=== PATIENT | male | born 1965 | race Caucasian/White ===

== ENCOUNTER → 2018-05-18 | Day surgery (SDC) | payer OTHER ==
[2018-05-17 12:30] VITALS: BMI 40.3
[~2018-05-18] MED LIST: ALPRAZolam 0.25 MG TAB PO PRN; ALPRAZolam 0.5 MG TAB PO PRN; ASPIRIN 325 MG TAB PO STA; ASPIRIN 81 MG PO SCH; ATORVASTATIN 80 MG TAB PO SCH; ATORVASTATIN 80 MG TAB PO STA; CLOPIDOGREL 75 MG TAB PO SCH; CYCLOBENZAPRINE 10 MG TAB PO SCH; DIAZEPAM 5 MG TAB PO SCH; FUROSEMIDE 20 MG TAB PO SCH; IOPAMIDOL-370 150ML BTL INJ ONE; IPRATROPIUM 0.5 MG/2.5 ML NEBU INHALATION SCH; IV FLUID CONTINUATION 950 ML IV ONE; LIDOCAINE 1% INJ 10MG/ML (20 ML MDV) ONE; LIDOCAINE 1% INJ 10MG/ML (20 ML MDV) SQ ONE; LOSARTAN 50 MG TAB PO SCH; METOPROLOL TARTRATE 25 MG TAB PO SCH; MIDAZOLAM 2 MG/2 ML VIAL IV ONE; MONTELUKAST 10 MG TAB PO SCH; NICOTINE 21MG/24HR PATCH TRANSDERM SCH; NITROGLYCERIN SL TABS 0.4 MG TAB SUBLINGUAL PRN; RX INFO: IV CONTRAST WAS GIVEN 1 EACH MISC MISCELLANE PRN; SODIUM CHLORIDE 0.9% 1,000 ML IV SCH; SODIUM CHLORIDE 0.9% 1,000 ML in EMPTY BAG 1 BAG IV ONE; fentaNYL (PF) 50 MCG/ML 2 ML AMP IV ONE; fentaNYL (PF) 50 MCG/ML 2 ML AMP ONE; metFORMIN 500 MG TAB PO SCH
[2018-05-18 09:33] VITALS: TEMP 97.9
[2018-05-18 09:46] LABS: Glucose,Whole Blood 110 mg/dL (75-99)
--- NOTE | 2018-05-18 12:42 | CC ---
CARDIAC CATHETERIZATION REPORT This patient is status post prior history of a stent to the LAD and circumflex with total right coronary artery occlusion. Patient was recently admitted in the hospital with the flu and pneumonia and patient had elevated troponin suggestive of type 2 myocardial infarction. In view of the significantly elevated troponin, patient was recommended to have a cardiac catheterization to rule out any significant obstructive coronary artery disease. PROCEDURE: The right groin was prepped and draped in the usual manner and the right femoral artery was entered using ultrasound technique and micropuncture needle. A #6-Sami sheath was placed in. Selective coronary angiography was then performed in multiple projections and the left ventricular pressures were obtained. Patient tolerated the procedure well. HEMODYNAMICS: The left ventricular end-diastolic pressure is 12 mmHg prior to angiography. No gradient is noted across the aortic valve. SELECTIVE CORONARY ANGIOGRAPHY: Left main coronary artery is normally patent. LAD is a good caliber blood vessel. There is a mild irregularity in the mid LAD. There is no evidence of any significant stenosis in the stent placement. Circumflex coronary artery is also a good caliber blood vessel, dominant in distribution and gives rise to a good size obtuse marginal branch and PLV branch. There is a mild diffuse atheromatous abnormality noted. Right coronary artery is 100% occluded. FINAL IMPRESSION: There is a mild diffuse atheromatous abnormality noted in the LAD and circumflex coronary artery without any obstructive coronary artery disease. Right coronary artery is totally occluded. RECOMMENDATIONS: Continue medical treatment. Moderate sedation was used. Total sedation time is 16 minutes. MMHALIMAL / RAJN: [id number] /
[2018-05-18 18:13] VITALS: RESP 18
[2018-05-18 18:35] VITALS: BP 116/75; PULSE 106
== END ==
LOC: CATHCVL 08:49
PROVIDERS: ATTEND Internal Medicine Cardiovascular Disease
DX: I25.10 Atherosclerotic heart disease of native coronary artery without angina pectoris (principal); I25.82 Chronic total occlusion of coronary artery; R79.89 Other specified abnormal findings of blood chemistry; E78.2 Mixed hyperlipidemia; I10 Essential (primary) hypertension; I25.2 Old myocardial infarction; Z95.5 Presence of coronary angioplasty implant and graft; Z79.01 Long term (current) use of anticoagulants; Z79.82 Long term (current) use of aspirin; Z79.899 Other long term (current) drug therapy; Z72.0 Tobacco use
CPT/HCPCS: 93458; C1760; C1894; C1769 ×2; J2250; J2001; J3010; Q9967